=== PATIENT | male | born 2000 ===

== ENCOUNTER 2018-11-21 09:04 | Day surgery (SDC) | payer BC ==
[~2018-11-21 09:04] MED LIST: Buffered Lidocaine 1% SYRIN* 1 ML/SYRINGE INTRADERM ONE; Dexamethasone IV* 4 MG/ML 1 ML (4 MG) IV SLOW PU ONE; Famotidine IV* 10 MG/ML 2 ML (20 mg) IV ONE; Lactated Ringers 1000 ML Bag* 1,000 ML IV SCH
[2018-11-21] MEDS ORDERED: ceFAZolin 2 GM in NS PREMIX(*) 2 GM/100 ML BAG IVPB ONE (09:32)
[2018-11-21] MEDS ORDERED: Bupivacaine 0.25% EPI 200,000* 30 ML SDV ONE (10:37)
[2018-11-21] MEDS ORDERED: Sodium Citrate/Citric Acid* 15 ML UDC ONE (10:38)
[2018-11-21] MEDS ORDERED: Propofol* 10 MG/ML 20 ML BTL ONE ×2 (10:49→12:03)
[2018-11-21] MEDS ORDERED: Lidocaine 2% PF * 5 ML VIAL ONE (10:50)
[2018-11-21] MEDS ORDERED: Rocuronium* 10 MG/ML VIAL ONE (10:50)
[2018-11-21] MEDS ORDERED: fentaNYL* 50 MCG/ML 2 ML VIAL (100 MCG VIAL) ONE ×3 (10:51→12:58)
[2018-11-21] MEDS ORDERED: fentaNYL* 50 MCG/ML 2 ML VIAL (100 MCG VIAL) IV PRN (11:25)
[2018-11-21] MEDS ORDERED: DiMENhydriNATE IV* 50 MG/ML VIAL IV PUSH PRN (11:25)
[2018-11-21] MEDS ORDERED: Naloxone* 0.4 MG/ML 1 ML VIAL IV PRN (11:25)
[2018-11-21] MEDS ORDERED: Ondansetron INJ* 2 MG/ML VIAL ONE (11:37)
[2018-11-21] MEDS ORDERED: Ketorolac INJ* 30 MG/ML 1 ML VIAL ONE (11:37)
[2018-11-21] MEDS ORDERED: Glycopyrrolate IV* 0.2 MG/ML 1 ML VIAL ONE (11:42)
--- NOTE | 2018-11-21 12:14 | OP ---
Operative Report - Blank - Operative Report Date of Operation: 11/21/18 Note: Brief Operative Note Preop Dx: symptomatic cholelithiasis Postop Dx: same Procedure: Laparoscopic cholecystectomy Anesthesia: GET Surgeon: Bailee Stock Wetter: ARIADNE Feliciano Fluids: 1700 ml RL EBL: < 50 ml Specimen: gallbladder Drains: none Findings: as above Complications: none
[2018-11-21 14:46] VITALS: BP 105/72
--- NOTE | 2018-11-26 12:47 | OP ---
CC: Nir Thompson MD * DATE OF OPERATION: 11/21/18 - SDS DATE OF : [birth year] SURGEON: Juan Morocho MD STEWARD DISHWASHER: ARIADNE Valero ANESTHESIA: General endotracheal. PRE-OP DIAGNOSIS: Symptomatic cholelithiasis. POST-OP DIAGNOSIS: Symptomatic cholelithiasis. OPERATIVE PROCEDURE: Laparoscopic cholecystectomy. ESTIMATED BLOOD LOSS: Less than 50 mL. IV FLUIDS: 1.7 L crystalloids. SPECIMEN: Gallbladder. DRAINS: None. COMPLICATIONS: None. COUNTS: The instrument, needle and sponge counts were correct. DESCRIPTION OF PROCEDURE: The patient was brought to the operating room and placed on the table supine. Sequential compression devices were placed on both lower extremities. General anesthesia was administered. His abdomen was prepped and draped in the usual sterile fashion. A time-out was performed. Local anesthetic was infiltrated into the skin and soft tissue prior to making each incision. Entry to the abdomen was through a transumbilical incision using an open technique. After accessing the peritoneal cavity, a 12-mm trocar was placed and carbon dioxide was insufflated to a pressure of 15 mmHg. Under direct visualization, 5-mm trocars were placed, 2 in the right upper quadrant, 1 in the subxiphoid position. The gallbladder was identified. It had chronic inflammatory changes. It was grasped at the fundus and retracted cephalad. The infundibulum was identified and grasped. The peritoneum invested and the gallbladder was incised with cautery and sharp dissection. This was performed on the medial and lateral aspects and the cystic duct and cystic artery were each dissected out bluntly. Each was doubly clipped and divided after obtaining a critical view. Subsequently, division of the gallbladder from attachments to the liver bed was performed using the hook electrocautery. Once the gallbladder was freed, it was placed into an endoscopic retrieval bag and retrieved through the umbilical site. Inspection revealed hemostasis to be excellent and clips were intact. Ports removed under direct visualization and carbon dioxide was released. Umbilical wound was closed with 0 Vicryl interrupted [id number] fashion. Skin was closed with 4-0 Monocryl in a subcuticular fashion. Dermaflex was applied. The patient tolerated the procedure well, was extubated, and transferred to Recovery in stable condition. [id number]/[facility] #: [id number] [facility]
== END 2018-11-21 14:45 | disposition home or self-care (01) ==
LOC: OR 09:04
PROVIDERS: ATTEND Surgery
DX: K80.10 Calculus of gallbladder with chronic cholecystitis without obstruction (principal); F84.0 Autistic disorder
CPT/HCPCS: 88304; A9270-GY; J0690; J1885; J2405; J2704; J3010